=== PATIENT | female | born 1970 | race Caucasian/White ===

== ENCOUNTER 2016-10-09 15:03 | Inpatient (IN) | payer OTHER ==
[~2016-10-09] VITALS: Ht 160 cm; Wt 113.4 kg
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
--- NOTE | ~2016-10-09 | EKG ---
[address] [address] ELECTROCARDIOGRAM REPORT Name: KIANA LEONARD MARIPOSA Room #: 427-P ADM IN M.R.#: [id number] Admission: 10/09/16 Attend Phys: Rickey Mcdermott MD Discharge: Date of : 66 Report #: [id number] THIS REPORT FOR: //name// [facility] ED Test Date: 2016-10-09 Test Time: 15:34:23 Pat Name: KIANA LEONARD Department: Room: [facility] Gender: F Clinical Services Manager: monique : 1970 Requested By: Zachary Chacon Order Number: [id number] MD: Gino Rinaldi Measurements Intervals [place] Rate: 109 P: 32 FL: 138 QRS: 6 QRSD: 89 T: 59 QT: 351 QTc: 473 Interpretive Statements Sinus tachycardia No previous ECG available for comparison Electronically Signed On 10-10-2016 13:29:56 CDT by Gino Rinaldi [email or web address] <ELECTRONICALLY SIGNED> By: Gino Rinaldi MD 10/10/16 1329 1534 1534 Gino Rinaldi MD /ANDI
[2016-10-09 15:08] VITALS: BP 139/79
[2016-10-09 15:39] LABS: HEMATOCRIT 34.8 % (37.0-47.0); HEMOGLOBIN 11.6 gm/dL (12.0-15.0); MCH 31.6 pg (26.0-34.0); MCHC 33.2 g/dL (28.0-37.0); MCV 95.2 fL (80.0-100.0); PLATELET COUNT 393 thou/uL (150-400); RBC 3.66 mil/uL (4.20-5.00); RDW 13.2 % (10.5-14.5)
[2016-10-09 15:40] LABS: MANUAL DIFF YES
[2016-10-09 15:48] LABS: ANION GAP 9 mmol/L (7-16); BUN 8 mg/dL (7-18); CALCIUM 8.7 mg/dL (8.5-10.1); CHLORIDE 108 mmol/L (98-107); CO2 25 mmol/L (21-32); CREATININE 0.7 mg/dL (0.6-1.3); GLUCOSE 140 mg/dL (70-99); SODIUM 142 mmol/L (136-145)
[2016-10-09 15:56] LABS: ABSOLUTE NEUTROPHILS 15.8 thou/uL (1.4-8.2); TOTAL CELL COUNT 100
[2016-10-09 15:57] LABS: ANISOCYTOSIS 1+; POLYCHROMASIA OCCASIONAL
[2016-10-09 16:00] LABS: NT-PRO BRAIN NAT PEPTIDE 282 pg/mL (<300); TROPONIN-I < 0.04 ng/mL (<0.04-0.07)
[2016-10-09] MEDS ORDERED: APAP500 PO (16:06)
[2016-10-09] MEDS ORDERED: NORVASC5 MG PO (16:10)
[2016-10-09] MEDS ORDERED: B COMPLEX1 EACH PO (16:12)
[2016-10-09] MEDS ORDERED: BUSPIRONE HCL10 MG PO (16:13)
[2016-10-09] MEDS ORDERED: LEXAPRO20 MG PO (16:14)
[2016-10-09] MEDS ORDERED: DDAVP0.1 MG PO (16:14)
[2016-10-09] MEDS ORDERED: NEURONTIN 300300 M1 PO (16:15)
[2016-10-09] MEDS ORDERED: FLONASE 0.05%50 MCG NASAL (16:15)
[2016-10-09] MEDS ORDERED: LATUDA60 MG PO (16:16)
[2016-10-09] MEDS ORDERED: CLARITIN10 MG PO (16:16)
[2016-10-09] MEDS ORDERED: LABETALOL HCL100 MG PO (16:16)
[2016-10-09] MEDS ORDERED: AFRIN15 ML NS (16:18)
[2016-10-09] MEDS ORDERED: SYMBICORT160 MCG/4. INH (16:18)
[2016-10-09] MEDS ORDERED: SEROQUEL 100 M100 M1 PO (16:18)
[2016-10-09] MEDS ORDERED: TRAMADOL 50 MG50 MG PO (16:19)
[2016-10-09] MEDS ORDERED: VITAMIN B-150 M1 PO (16:19)
[2016-10-09] MEDS ORDERED: IBUPROFEN 200200 M1 PO (16:20)
[2016-10-09] MEDS ORDERED: VITAMIN B-1100 M1 PO (16:20)
[2016-10-09] MEDS ORDERED: CLONAZEPAM 0.50.5 M1 PO (16:21)
[2016-10-09] MEDS ORDERED: PHENERGAN 25 MG25 M1 PO (16:22)
[2016-10-09] MEDS ORDERED: SEROQUEL 25 MG25 M1 PO (16:22)
[2016-10-09] MEDS ORDERED: CEPASTAT CHERR18 TA2 PO (16:23)
[2016-10-09] MEDS ORDERED: ALKA-SELTZER O1 EACH PO (16:24)
[2016-10-09] MEDS ORDERED: TRAZODONE HCL100 MG PO (16:25)
[2016-10-09] MEDS ORDERED: VITAMIN B-12500 MCG PO (16:28)
[2016-10-09 17:15] VITALS: BP 138/70
[2016-10-09 18:33] VITALS: BP 146/92
[2016-10-09 19:56] LABS: ABG SAMPLE TYPE ARTERIAL; BE(vivo) 0.4 mmol/L (-2 to +3); LACTATE 0.93 mmol/L (0.5-2.0); O2(CT) 13.8 mL/dL (15.0-23.0); O2Hb 90.3 % (92.0-98.0); PCO2 35.1 mmHg (35.0-45.0); PO2 70.2 mmHg (80.0-100.0); pH 7.453 (7.360-7.450); tCO2 25.1 mmol/L (24.0-30.0)
[2016-10-09 19:57] LABS: STICK SITE R.RADIAL
[2016-10-10 04:05] VITALS: BP 127/70
[2016-10-10 05:50] LABS: ABSOLUTE NEUTROPHILS 6.8 thou/uL (1.4-8.2); BASOPHILS 0.5 % (0.0-2.0); EOSINOPHILS 3.6 % (0.0-3.0); HEMATOCRIT 30.4 % (37.0-47.0); HEMOGLOBIN 10.1 gm/dL (12.0-15.0); LYMPHOCYTES 17.3 % (24.0-44.0); MCH 32.1 pg (26.0-34.0); MCHC 33.4 g/dL (28.0-37.0); MCV 96.1 fL (80.0-100.0); MONOCYTES 8.1 % (1.0-8.0); PLATELET COUNT 341 thou/uL (150-400); POLYS 70.5 % (36.0-66.0); RBC 3.16 mil/uL (4.20-5.00); RDW 13.4 % (10.5-14.5); WBC 9.6 thou/uL (4.0-11.0)
[2016-10-10 06:07] LABS: MANUAL DIFF NO
[2016-10-10 06:21] LABS: ALBUMIN 2.7 g/dL (3.4-5.0); ALKALINE PHOSPHATASE 176 U/L (46-116); ANION GAP 9 mmol/L (7-16); BUN 7 mg/dL (7-18); CALCIUM 7.9 mg/dL (8.5-10.1); CHLORIDE 110 mmol/L (98-107); CO2 25 mmol/L (21-32); CREATININE 0.7 mg/dL (0.6-1.3); DIRECT BILIRUBIN < 0.1 mg/dL (<0.1-0.3); GLUCOSE 99 mg/dL (70-99); POTASSIUM 3.4 mmol/L (3.5-5.1); SGOT 25 U/L (15-37); SGPT 36 U/L (30-65); SODIUM 144 mmol/L (136-145); TOTAL BILIRUBIN 0.4 mg/dL (<0.1-1.0); TOTAL PROTEIN 5.6 g/dL (6.4-8.2)
[2016-10-10 07:26] VITALS: BP 102/59
[2016-10-10 15:26] VITALS: BP 127/76
[2016-10-10 20:00] VITALS: BP 137/68
[2016-10-11 04:00] VITALS: BP 138/85
[2016-10-11 04:15] LABS: CALCIUM 7.7 mg/dL (8.5-10.1); CREATININE 0.7 mg/dL (0.6-1.3); MAGNESIUM 2.2 mg/dL (1.8-2.4)
[2016-10-11 04:19] LABS: POTASSIUM 4.4 mmol/L (3.5-5.1)
[2016-10-11 09:02] VITALS: BP 122/60
[2016-10-11 14:48] VITALS: BP 122/65
[2016-10-12 04:30] VITALS: BP 149/106
[2016-10-12 07:36] VITALS: BP 141/80
[2016-10-12 11:06] VITALS: BP 145/80
[2016-10-12 15:20] VITALS: BP 143/72
[2016-10-12 20:00] VITALS: BP 153/72
[2016-10-13 04:34] VITALS: BP 115/62
[2016-10-13 04:48] LABS: HEMATOCRIT 31.8 % (37.0-47.0); HEMOGLOBIN 10.6 gm/dL (12.0-15.0); MCH 32.4 pg (26.0-34.0); MCHC 33.3 g/dL (28.0-37.0); MCV 97.4 fL (80.0-100.0); RBC 3.27 mil/uL (4.20-5.00); RDW 13.4 % (10.5-14.5); WBC 8.9 thou/uL (4.0-11.0)
[2016-10-13 05:00] LABS: CALCIUM 8.1 mg/dL (8.5-10.1); CREATININE 0.8 mg/dL (0.6-1.3); POTASSIUM 4.1 mmol/L (3.5-5.1)
[2016-10-13 05:27] LABS: FOLIC ACID 10.5 ng/mL (8.6-58.9)
[2016-10-13 07:52] VITALS: BP 117/87
[2016-10-13 15:29] VITALS: BP 110/59
[2016-10-13 20:00] VITALS: BP 106/52
[2016-10-14 04:00] VITALS: BP 93/51
[2016-10-14 07:13] VITALS: BP 116/48
[2016-10-14 18:16] VITALS: BP 138/87
[2016-10-14 20:00] VITALS: BP 135/77
[2016-10-15 04:30] VITALS: BP 132/70
[2016-10-15 09:10] VITALS: BP 129/89
[2016-10-15 15:34] VITALS: BP 150/90
[2016-10-15 20:00] VITALS: BP 138/80
[2016-10-16 04:00] VITALS: BP 139/87
[2016-10-16 07:35] VITALS: BP 123/77
[2016-10-16] MEDS ORDERED: DOXYCYCLINE 10100 MG PO (10:24)
[2016-10-16] MEDS ORDERED: K-DUR 20 MEQ T20 MEQ PO (10:25)
[2016-10-16] MEDS ORDERED: GUAIFENESIN/COD10 M1 PO (10:26)
[2016-10-16] MEDS ORDERED: CEPACOL SORE T1 EAC7 PO (10:27)
[2016-10-16] MEDS ORDERED: LOPERAMIDE 2 MG2 M1 PO (10:28)
[2016-10-16] MEDS ORDERED: LIDOCAINE35.44 GM TOP (10:28)
== END 2016-10-16 15:17 | DRG 177 ==
LOC: ER 15:03 → 4E 16:19 → EROBS 16:19 → 4E 17:19
PROVIDERS: Emergency Medicine; Internal Medicine
PROC: 02HV33Z Insertion of Infusion Device into Superior Vena Cava, Percutaneous Approach (ICD-10-PCS; principal; 2016-10-15)
DX: J15.212 Pneumonia due to Methicillin resistant Staphylococcus aureus (principal); E43 Unspecified severe protein-calorie malnutrition; R65.10 Systemic inflammatory response syndrome (SIRS) of non-infectious origin without acute organ dysfunction; Z68.41 Body mass index [BMI] 40.0-44.9, adult; F60.3 Borderline personality disorder; F32.9 Major depressive disorder, single episode, unspecified; J45.909 Unspecified asthma, uncomplicated; E86.0 Dehydration; I10 Essential (primary) hypertension; M79.1 Myalgia; D64.9 Anemia, unspecified; K58.9 Irritable bowel syndrome, unspecified; M17.11 Unilateral primary osteoarthritis, right knee; K21.9 Gastro-esophageal reflux disease without esophagitis; E66.3 Overweight; Z88.1 Allergy status to other antibiotic agents; Z88.8 Allergy status to other drugs, medicaments and biological substances; Z98.84 Bariatric surgery status; Z90.710 Acquired absence of both cervix and uterus; Z90.721 Acquired absence of ovaries, unilateral; Z90.49 Acquired absence of other specified parts of digestive tract; Z87.81 Personal history of (healed) traumatic fracture
CPT/HCPCS: 10183

== ENCOUNTER 2018-12-16 15:05 | Emergency (ER) | payer OTHER ==
[~2018-12-16] VITALS: Ht 160 cm; Wt 86.2 kg
[~2018-12-16 15:05] MED LIST: AFRIN15 ML NS; ALKA-SELTZER O1 EACH PO; APAP500 PO; B COMPLEX1 EACH PO; BUSPIRONE HCL10 MG PO; CEPACOL SORE T1 EAC7 PO; CEPASTAT CHERR18 TA2 PO; CLARITIN10 MG PO; CLONAZEPAM 0.50.5 M1 PO; DDAVP0.1 MG PO; DOXYCYCLINE 10100 MG PO; FLONASE 0.05%50 MCG NASAL; GUAIFENESIN/COD10 M1 PO; IBUPROFEN 200200 M1 PO; K-DUR 20 MEQ T20 MEQ PO; LABETALOL HCL100 MG PO; LATUDA60 MG PO; LEXAPRO20 MG PO; LIDOCAINE35.44 GM TOP; LOPERAMIDE 2 MG2 M1 PO; NEURONTIN 300300 M1 PO; NORVASC5 MG PO; PHENERGAN 25 MG25 M1 PO; SEROQUEL 100 M100 M1 PO; SEROQUEL 25 MG25 M1 PO; SYMBICORT160 MCG/4. INH; TRAMADOL 50 MG50 MG PO; TRAZODONE HCL100 MG PO; VITAMIN B-1100 M1 PO; VITAMIN B-12500 MCG PO; VITAMIN B-150 M1 PO
[2018-12-16 17:55] LABS: ABSOLUTE NEUTROPHILS 4.1 thou/uL (1.4-8.2); BASOPHILS 0.9 % (0.0-2.0); EOSINOPHILS 6.2 % (0.0-3.0); HEMATOCRIT 37.1 % (37.0-47.0); HEMOGLOBIN 12.7 gm/dL (12.0-15.0); LYMPHOCYTES 32.7 % (24.0-44.0); MCH 33.6 pg (26.0-34.0); MCHC 34.1 g/dL (28.0-37.0); MCV 98.5 fL (80.0-100.0); MONOCYTES 5.8 % (1.0-8.0); PLATELET COUNT 283 thou/uL (150-400); POLYS 54.4 % (36.0-66.0); RBC 3.77 mil/uL (4.20-5.00); RDW 12.1 % (10.5-14.5); WBC 7.5 thou/uL (4.0-11.0)
[2018-12-16 18:12] LABS: CALCIUM 9.3 mg/dL (8.5-10.1); CREATININE 0.7 mg/dL (0.6-1.0); POTASSIUM 3.8 mmol/L (3.5-5.1)
[2018-12-16 18:17] LABS: ALBUMIN 3.9 g/dL (3.4-5.0); TOTAL BILIRUBIN 0.3 mg/dL (<0.1-1.0); TOTAL PROTEIN 7.1 g/dL (6.4-8.2)
[2018-12-16 19:28] VITALS: BP 121/71
== END 2018-12-16 19:25 | disposition home or self-care (01) ==
LOC: ER 15:05
PROVIDERS: Physician Assistant
DX: R60.0 Localized edema (principal); M79.89 Other specified soft tissue disorders; M79.662 Pain in left lower leg; M79.661 Pain in right lower leg; F32.9 Major depressive disorder, single episode, unspecified; F41.9 Anxiety disorder, unspecified; G62.9 Polyneuropathy, unspecified; J45.909 Unspecified asthma, uncomplicated; Z96.652 Presence of left artificial knee joint; Z88.1 Allergy status to other antibiotic agents